=== PATIENT | female | born 1990 | race Caucasian/White ===

== ENCOUNTER 2018-04-25 13:05 | Emergency (ER) | payer OTHER ==
[~2018-04-25] VITALS: Ht 152.4 cm; Wt 64.1 kg
[2018-04-25 13:17] VITALS: BP 105/71
--- NOTE | 2018-04-25 13:17 | NUR ---
PT AMBULATED TO ER BED 08
--- NOTE | 2018-04-25 13:20 | NUR ---
PT C/O RT ANKLE PAIN S/P FALL ON A STAIRS LAST SATURDAY AND ROLLED HER RT FOOT; ABLE TO AMBULATE TO BED 8. PATIENT STATES PAIN OF 7/10 AT THIS TIME; VSS; PATIENT POSITIONED FOR COMFORT; HOB ELEVATED; BEDRAILS UP X1; BED DOWN. ER MD MADE AWARE OF PT STATUS.
--- NOTE | 2018-04-25 15:00 | NUR ---
Patient being evaluated by DR RUTLEDGE at bedside.
--- NOTE | 2018-04-25 15:01 | NUR ---
2nd call to radiology for x-ray read---they will call for read
[2018-04-25] MEDS ORDERED: KETOROLAC 60 MG/2 ML VIAL IM ONE (15:05)
--- NOTE | 2018-04-25 15:30 | NUR ---
Patient discharged with v/s stable. Written and verbal after care instructions given and explained. Patient alert, oriented and verbalized understanding of instructions. Ambulatory with steady gait. All questions addressed prior to discharge. ID band removed. Patient advised to follow up with PMD. Rx of motrin and norco given. Patient educated on indication of medication including possible reaction and side effects. Opportunity to ask questions provided and answered.
[2018-04-25 15:34] VITALS: BP 105/71
== END 2018-04-25 15:30 | disposition home or self-care (01) ==
LOC: MED 13:05
DX: S93.401A Sprain of unspecified ligament of right ankle, initial encounter (principal); J45.909 Unspecified asthma, uncomplicated; X50.1XXA Overexertion from prolonged static or awkward postures, initial encounter; Y93.89 Activity, other specified; Y92.89 Other specified places as the place of occurrence of the external cause; Y99.8 Other external cause status
CPT/HCPCS: 73610; 96372; 99284; J1885; Q0092

== ENCOUNTER 2018-06-26 19:24 | Emergency (ER) | payer OTHER ==
[~2018-06-26] VITALS: Ht 152.4 cm; Wt 61.2 kg
[2018-06-26 19:30] VITALS: BP 106/54
[2018-06-26] MEDS: LORazepam 2 MG/ML VIAL IVP ONE (20:17)
[2018-06-26 20:25] LABS: EOSINOPHILS # (AUTO) 0.1 K/uL (0-0.4); HEMOGLOBIN 12.4 g/dL (12.0-16.0); MEAN CORPUSCULAR HEMOGLOBIN 30 pg (27-31); MEAN CORPUSCULAR HGB CONC 34 g/dL (33-37); MONOCYTES # (AUTO) 0.5 K/uL (0.8-1.0); RED BLOOD CELL COUNT(AUTO) 4.15 MIL/uL (4.20-5.40)
[2018-06-26 20:29] LABS: BARBITURATE, URINE NEG. ng/ml (NEG <=200); BENZODIAZEPINE, URINE NEG. ng/mL (NEG <=200); CANNABINOID, URINE NEG. ng/mL (NEG <=50); COCAINE, URINE NEG. ng/mL (NEG <=300); OPIATE, URINE NEG. ng/mL (NEG <=2000); PHENCYCLIDINE SCREEN,URINE NEG. ng/mL (NEG <=25)
[2018-06-26 20:34] LABS: ANION GAP 13.4 (8-16); CARBON DIOXIDE 23.8 mmol/L (21-32); CREATININE 0.7 mg/dL (0.6-1.3); POTASSIUM 4.2 mmol/L (3.5-5.1)
[2018-06-26 20:35] LABS: BASOPHILS % (AUTO) 0.3 % (0.0-2.0); HEMATOCRIT 36.8 % (36-48); LYMPHOCYTES # (AUTO) 1.1 K/uL (2.5-16.5); LYMPHOCYTES % (AUTO) 17.2 % (20.5-51.1); MEAN CORPUSCULAR VOLUME 88.5 fL (80-94); NEUTROPHILS # (AUTO) 4.8 K/uL (1.8-7.7); NEUTROPHILS % (AUTO) 73.5 % (42.2-75.2); PLATELET COUNT (AUTO) 358 K/uL (140-450); RED CELL DISTRIBUTION WIDTH 13.2 % (11.6-13.7); WHITE BLOOD COUNT (AUTO) 6.6 K/uL (4.8-10.8)
[2018-06-26 20:40] LABS: ALBUMIN 3.5 g/dL (3.4-5.0); TOTAL BILIRUBIN 0.8 mg/dL (0.0-1.0)
== END 2018-06-26 21:05 | disposition home or self-care (01) ==
LOC: MED 19:24
DX: S00.532A Contusion of oral cavity, initial encounter (principal); S00.01XA Abrasion of scalp, initial encounter; R56.9 Unspecified convulsions; J45.909 Unspecified asthma, uncomplicated; F17.210 Nicotine dependence, cigarettes, uncomplicated; X58.XXXA Exposure to other specified factors, initial encounter; Y93.89 Activity, other specified; Y92.89 Other specified places as the place of occurrence of the external cause; Y99.8 Other external cause status
CPT/HCPCS: 36415; 70450; 80053; 80305; 81002; 81025; 85025; 96374; 99284; J2060